=== PATIENT | female | born 1970 | race Asian ===

== ENCOUNTER 2019-10-01 11:25 | Emergency (ER) | payer SELFPAY ==
[~2019-10-01] VITALS: Ht 180.3 cm; Wt 62.1 kg
[2019-10-01 11:38] VITALS: BP 134/86; Ht 180.3 cm; Wt 62.1 kg
== END 2019-10-01 13:03 | disposition home or self-care (01) ==
LOC: ED 11:25
DX: B34.9 Viral infection, unspecified (principal); R03.0 Elevated blood-pressure reading, without diagnosis of hypertension